=== PATIENT | female | born 1980 | race American Indian/Alaskan Native ===

== ENCOUNTER 2017-02-12 20:11 | Emergency (ER) | payer BC ==
[2017-02-12 20:11] VITALS: BMI 25.7
[2017-02-12 20:29] VITALS: BP 114/79; PULSE 67; RESP 20; TEMP 98; O2SAT 99
--- NOTE | 2017-02-12 21:22 | C.PDOC ---
History Of Present Illness 36 y/o female presents to the ED for evaluation of bilateral shoulder pain which began around 2 days ago. Patient states her symptoms are consistent with her usual muscle spasms. Patient states she ran out of her medication and is requesting a refill. She denies fever, chills, headache, or prior injury. Time Seen by Provider: 02/12/17 20:40 Chief Complaint (Nursing): Back Pain History Per: Patient History/Exam Limitations: no limitations Onset/Duration Of Symptoms: Days (2) Current Symptoms Are (Timing): Still Present Quality Of Discomfort: "Pain" Previous Symptoms: Other (shoulder pain ). denies: Prior Injury Associated Symptoms: denies: New Numbness Additional History Per: Patient Past Medical History Reviewed: Historical Data, Nursing Documentation, Vital Signs Vital Signs: Last Vital Signs Temp 98 F 02/12/17 20:23 Pulse 67 02/12/17 20:23 Resp 20 02/12/17 20:23 BP 114/79 02/12/17 20:23 Pulse Ox 99 02/12/17 23:25 - Medical History PMH: HTN Surgical History: Cholecystectomy Family History: States: Unknown Family Hx - Social History Hx Tobacco Use: No Hx Alcohol Use: Yes Hx Substance Use: No - Immunization History Hx Tetanus Toxoid Vaccination: No Hx Influenza Vaccination: No Hx Pneumococcal Vaccination: No Review Of Systems Constitutional: Negative for: Fever, Chills Musculoskeletal: Positive for: Shoulder Pain (bilaterally ) Physical Exam - Physical Exam Appears: Non-toxic, No Acute Distress Skin: Normal Color, Warm, Dry Head: Atraumatic, Normacephalic Neck: Normal ROM, No Midline Cervical Tenderness, Supple Back: No Vertebral Tenderness, Other (+bilateral trapezius muscle tenderness, right > left) Extremity: Normal ROM, Capillary Refill (less than 2 seconds ) Pulses: Left Radial: Normal, Right Radial: Normal Neurological/Psych: Oriented x3, Normal Speech, Normal Cognition, Normal Motor, Normal Sensation ED Course And Treatment O2 Sat by Pulse Oximetry: 99 (on RA) Pulse Ox Interpretation: Normal Medical Decision Making Medical Decision Making: Impression: 36y/o female with b/l shoulder pain Plan: * Motrin PO * reassess and disposition Progress: Patient received Motrin PO. On reassessment, patient is resting comfortably, showing no signs of distress, and reports an improvement in her shoulder pain. Patient is stable for discharge and is advised to follow up with her PMD within 1-2 days for further evaluation. Disposition Counseled Patient/Family Regarding: Diagnosis, Need For Followup, Rx Given - Disposition Referrals: Robert Rodriguez MD [Staff Provider] - Disposition: HOME/ ROUTINE Disposition Time: 21:21 Condition: STABLE Additional Instructions: Apply warm compresses to affected area several times a day. Take ibuprofen as prescribed, with food. Muscle relaxant may make you sleepy- do not take if working or driving. May take 3 times a day if home; if working, taking at bedtime only. Follow up with Dr Rodriguez in a few days. Prescriptions: Cyclobenzaprine [Cyclobenzaprine HCl] 10 mg PO Q8 #9 tab Ibuprofen [Motrin] 600 mg PO TID #30 tab Instructions: Muscle Spasm (ED) Forms: General Discharge Instructions, [facility] ([place]), Work Excuse - Clinical Impression Clinical Impression: Trapezius muscle spasm - PA / [employer] / Resident Statement MD/DO has reviewed & agrees with the documentation as recorded. - Scribe Statement The provider has reviewed the documentation as recorded by the Scribe (Bee Santoyo) All medical record entries made by the Scribe were at my direction and personally dictated by me. I have reviewed the chart and agree that the record accurately reflects my personal performance of the history, physical exam, medical decision making, and the department course for this patient. I have also personally directed, reviewed, and agree with the discharge instructions and disposition.
== END 2017-02-12 21:32 | disposition home or self-care (01) ==
LOC: C.ER 20:11
DX: M62.838 Other muscle spasm (principal); I10 Essential (primary) hypertension